=== PATIENT | female | born 1935 | race Asian ===

== ENCOUNTER 2018-07-11 01:16 | Emergency (ER) | payer MEDICARE, BC ==
[~2018-07-11] VITALS: Ht 149.9 cm; Wt 63.5 kg
--- NOTE | 2018-07-11 01:21 | NUR ---
Pt. BIB [facility] for 610 lower back pain x 6 days, hx. of cervical spine fusion, L hip replacement and R femur fracture, A/Ox4, RR even and unlabored, speaks in clear and complete sentences, VSS, bed in low position,
--- NOTE | 2018-07-11 01:28 | NUR ---
at bedside for MSE
[2018-07-11] MEDS ORDERED: [UNRECOGNIZED DRUG - REMARK] (01:29)
[2018-07-11] MEDS ORDERED: [UNRECOGNIZED DRUG - REMARK] (01:29)
[2018-07-11] MEDS ORDERED: [UNRECOGNIZED DRUG - REMARK] (01:29)
[2018-07-11] MEDS ORDERED: TRAMADOL HCL 50 MG TABLET ONE (01:41)
[2018-07-11] MEDS ORDERED: CYCLOBENZAPRINE HCL 10 MG TABLET ONE (01:41)
[2018-07-11] MEDS ORDERED: CYCLOBENZAPRINE HCL 10 MG TABLET PO ONE (01:45)
[2018-07-11] MEDS ORDERED: TRAMADOL HCL 50 MG TABLET PO ONE (01:45)
--- NOTE | 2018-07-11 01:45 | NUR ---
Called Radiology for CT
--- NOTE | 2018-07-11 01:50 | NUR ---
Rad. tech. at bedside for CT, pt. taken off unit via stretcher,
--- NOTE | 2018-07-11 02:05 | NUR ---
Pt. back from CT,
--- NOTE | 2018-07-11 03:21 | NUR ---
Patient discharged to home in stable conditon. Written and verbal after care instructions given. Patient verbalizes understanding of instructions. Pt. d/c w/ prescription per MD order, d/c papers signed, all belongings w/ pt., ID band removed, taken off unit in wheelchair accompanied by female business administrator, left in rideshare car, NAD
== END 2018-07-11 03:23 | disposition home or self-care (01) ==
LOC: ER 01:30
DX: S32.038A Other fracture of third lumbar vertebra, initial encounter for closed fracture (principal); M51.26 Other intervertebral disc displacement, lumbar region; K21.9 Gastro-esophageal reflux disease without esophagitis; E78.5 Hyperlipidemia, unspecified; Z88.8 Allergy status to other drugs, medicaments and biological substances; Z79.899 Other long term (current) drug therapy; X58.XXXA Exposure to other specified factors, initial encounter; Y93.89 Activity, other specified; Y92.89 Other specified places as the place of occurrence of the external cause; Y99.8 Other external cause status
CPT/HCPCS: 72131; A4663